=== PATIENT | female | born 1960 | race African-American/Black ===

== ENCOUNTER 2018-04-28 05:15 | Emergency (ER) | payer MEDICARE ==
[~2018-04-28] VITALS: Ht 160 cm; Wt 81.6 kg
[2018-04-28] MEDS ORDERED: LYRICA100 MG PO (05:36)
[2018-04-28] MEDS ORDERED: ALPRAZOLAM1 MG PO (05:36)
[2018-04-28] MEDS ORDERED: COMBIVENT RESPIM4 GM INH (05:36)
[2018-04-28] MEDS ORDERED: NEXIUM40 MG PO (05:36)
[2018-04-28] MEDS ORDERED: ZOLPIDEM TARTRA10 MG PO (05:36)
[2018-04-28] MEDS ORDERED: HYDROCODON-ACE1 EAC9 PO (05:36)
[2018-04-28] MEDS ORDERED: FUROSEMIDE20 MG PO (05:36)
[2018-04-28] MEDS ORDERED: PREMARIN0.3 MG PO (05:36)
[2018-04-28] MEDS ORDERED: PROPRANOLOL HCL60 MG PO (05:36)
[2018-04-28] MEDS ORDERED: MELOXICAM15 MG PO (05:36)
[2018-04-28] MEDS ORDERED: LISINOPRIL-HCT1 EAC1 PO (05:36)
[2018-04-28 05:37] LABS: BASOPHILS % 0.6 % (0.0-1.0); EOSINOPHILS # (AUTO) 0.1 (0.0-0.4); HEMATOCRIT 29.7 % (34.2-44.1); HEMOGLOBIN 9.6 g/dL (12.0-16.0); LYMPHOCYTES # (AUTO) 3.3 (1.0-3.2); LYMPHOCYTES % 49.5 % (18.0-39.1); MEAN CORPUSCULAR HEMOGLOBIN 28.8 pg (28-32); MEAN CORPUSCULAR HGB CONC 32.3 g/dL (31-35); MEAN CORPUSCULAR VOLUME 89.2 fL (81-99); MONOCYTES # (AUTO) 0.5 (0.2-0.8); NEUTROPHILS # (AUTO) 2.6 (2.1-6.9); NEUTROPHILS % 39.6 % (38.7-80.0); PLATELET COUNT 375 x10e3/uL (140-360); RED BLOOD COUNT 3.33 x10e6/uL (3.6-5.1); RED CELL DISTRIBUTION WIDTH 16.5 % (11.7-14.4)
[2018-04-28] MEDS ORDERED: KETOROLAC TROMETHAMINE 30 MG/ML VIAL IV STA (05:54)
[2018-04-28 05:59] LABS: ALANINE AMINOTRANSFERASE 15 IU/L (0-55); ALBUMIN 3.5 g/dL (3.5-5.0); ALKALINE PHOSPHATASE 102 IU/L (40-150); ANION GAP 13.7 mmol/L (8-16); BLOOD UREA NITROGEN 6 mg/dL (7-26); BUN/CREATININE RATIO 8 (6-25); CALCIUM 9.4 mg/dL (8.4-10.2); CARBON DIOXIDE 31 mmol/L (22-29); CHLORIDE 95 mmol/L (98-107); CREATINE KINASE 221 IU/L (29-168); CREATININE, SERUM 0.74 mg/dL (0.57-1.11); EST GLOMERULAR FILTRATION RATE > 60 ML/MIN (60-); GLUCOSE 106 mg/dL (74-118); POTASSIUM 3.7 mmol/L (3.5-5.1); SODIUM 136 mmol/L (136-145)
[2018-04-28 06:30] LABS: BILIRUBIN,URINE NEGATIVE (NEGATIVE); CLARITY,URINE CLEAR (CLEAR); COLOR,URINE YELLOW (YELLOW); KETONES,URINE NEGATIVE (NEGATIVE); LEUKOCYTE ESTERASE ,URINE NEGATIVE (NEGATIVE); NITRITE,URINE NEGATIVE (NEGATIVE); PROTEIN,URINE DIPSTICK NEGATIVE (NEGATIVE); URINE UROBILINOGEN 0.2 mg/dL (0.2 - 1)
[2018-04-28 06:35] LABS: BACTERIA,URINE RARE /HPF; EPITHELIAL CELLS,URINE MODERATE /LPF; RBC,URINE 0-5 /HPF (0-5); WBC,URINE (MAN) 0-5 /HPF (0-5)
[2018-04-28] MEDS ORDERED: NAPROXEN250 MG PO (06:35)
--- NOTE | 2018-04-28 06:49 | Diagnostic Imaging Report ---
EXAM: CHEST SINGLE (NOT PORTABLE), AP 1 view INDICATION: Shortness of breath COMPARISON: None FINDINGS: LINES/TUBES: None LUNGS: No consolidations or edema. PLEURA: No effusions or pneumothorax. HEART AND MEDIASTINUM: Normal size and contour. BONES AND SOFT TISSUES: No acute findings. Mid thoracic spine vertebral plasty changes. Surgical clips left upper quadrant of the abdomen. IMPRESSION: No consolidations. Signed by: Dr. Zoey Navarro M.D. on 04/28/2018 6:46 AM
--- NOTE | 2018-04-28 06:54 | Diagnostic Imaging Report ---
EXAM: lumbar spine, 3 views, AP, lateral and coned lateral view INDICATION: Right lower back pain without trauma COMPARISON: None FINDINGS: BONES: Five lumbar-type vertebral bodies. The alignment is within normal limits. Anterior spinal fusion of L4, L5 and S1 and posterior hardware. The posterior plate is from its screw on the lateral view. No acute displaced fractures. Mild loss of T11 vertebral body height. No lytic or blastic lesions. DISCS: Fused L4-S1 JOINTS: Multilevel facet arthropathy SOFT TISSUES: Multiple surgical clips and sutures left upper abdomen. IMPRESSION: Surgical fusion of L4-S1. The plate is from its screw posteriorly. No priors are available for comparison to determine if this is a chronic or acute finding. Signed by: Dr. Zoey Navarro M.D. on 04/28/2018 6:50 AM
[2018-04-28 07:40] VITALS: BP 147/87
== END 2018-04-28 07:25 | disposition home or self-care (01) ==
LOC: ER 05:15
DX: M54.6 Pain in thoracic spine (principal); S23.3XXA Sprain of ligaments of thoracic spine, initial encounter; R60.9 Edema, unspecified; Z87.891 Personal history of nicotine dependence
CPT/HCPCS: 36415; 71045; 72100; 80053; 81001; 82550; 82553; 83880; 84484; 85025; 93005; 99283; J1885

== ENCOUNTER → 2018-05-19 | Outpatient (CLI) | payer MEDICARE ==
[~2018-05-19] MED LIST: ALPRAZOLAM1 MG PO; COMBIVENT RESPIM4 GM INH; FUROSEMIDE20 MG PO; HYDROCODON-ACE1 EAC9 PO; LISINOPRIL-HCT1 EAC1 PO; LYRICA100 MG PO; MELOXICAM15 MG PO; NAPROXEN250 MG PO; NEXIUM40 MG PO; PREMARIN0.3 MG PO; PROPRANOLOL HCL60 MG PO; ZOLPIDEM TARTRA10 MG PO
--- NOTE | 2018-05-19 09:38 | Diagnostic Imaging Report ---
PROCEDURE:THORACIC SPINE 2VW COMPARISON:Lumbar spine x-ray dated 04/28/2018. INDICATIONS:Back pain 2-3 weeks. fracture with prior surgery FINDINGS:Vertebroplasty cement noted in the T9 vertebral body. Bones are osteopenic. Mild compression abnormality of T11 centrally involving the superior endplate. This appears unchanged compared to prior lumbar spine x-rays. Scattered degenerative spurring of the lower cervical spine and thoracic spine is present. CONCLUSION: 1. Vertebroplasty cement in the T9 vertebral body. 2. Compression abnormality of the superior endplate of T11 appears similar. Johnnie Medina D.O. Dictated by: Johnnie Medina D.O. on 05/19/2018 at 9:44 Electronically approved by: Johnnie Medina D.O. on 05/19/2018 at 9:48
== END ==
LOC: RAD 08:18
PROVIDERS: ATTEND Anesthesiology
DX: S22.079S Unspecified fracture of T9-T10 vertebra, sequela (principal)
CPT/HCPCS: 72070

== ENCOUNTER → 2018-11-03 | Outpatient (CLI) | payer MEDICARE ==
--- NOTE | 2018-11-03 12:17 | Diagnostic Imaging Report ---
Exam: Right ankle 3 views History: Chronic ankle pain Comparison: None. Findings: No acute, displaced fracture or dislocation. Tibial plafond and talar dome are intact. Ankle mortise is maintained. Cortical irregularity with suspected transverse defect in the partially visualized distal fibular diaphysis. Soft tissues are unremarkable. Impression: No acute osseous abnormality. 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 Correlate for history of trauma to this region. Signed by: Dr. Ramez Sims M.D. on 11/03/2018 12:14 PM
== END ==
LOC: RAD 11:33
PROVIDERS: ATTEND Anesthesiology
DX: M25.571 Pain in right ankle and joints of right foot (principal)

== ENCOUNTER 2019-08-31 13:16 | Emergency (ER) | payer MEDICARE ==
[~2019-08-31] VITALS: Ht 160 cm; Wt 81.6 kg
--- OUTSIDE RECORDS SUMMARY | 2019-08-31 13:19 | XMS REPORT ---
Author Author [facility] Address Unknown Phone Unavailable Care Team Providers Care Speeder Frame Tender Name Role Phone WILLARD CLIFFORD Unavailable Unavailable Brady NEWMAN Unavailable Unavailable Mehdi RAO Unavailable Unavailable Payers Payer Name Policy Type Policy Number Effective Date Expiration Date Problems This patient has no known problems. Allergies, Adverse Reactions, Alerts Allergy Name Allergy Type Status Severity Reaction(s) Onset Date Inactive Date Treating Clinician Comments codeine DA Active U 2017-11-08 00:00:00 latex DA Active U 2017-11-08 00:00:00 Medications This patient has no known medications. Results Test Description Test Time Test Comments Text Results Atomic Results Result Comments ANKLE 3 + VIEWS RIGHT 2018-11-03 12:12:00 [place] [address] Patient Name: MARCIAL JEFFREY MR #: [id number] : 1960 Age/Sex: 58/F Req #: [id number] Adm Physician: Ordered by: WILLARD CLIFFORD MD Report #: [id number] Location: [facility] Room/Bed: Procedure: DX/ANKLE 3 + VIEWS RIGHT Exam Date: 11/03/18 Exam Time: 1150 REPORT STATUS: Signed Exam: Right ankle 3 views History: Chronic a nkle pain Comparison: None. Findings: No acute, displaced fracture or dislocation. Tibial plafond and talar dome are intact. Ankle mortise is maintained. Cortical irregularity with suspected transverse defect in the partially visualized distal fibular diaphysis. Soft tissues are unremarkable. Impression: No acute osseous abnormality. 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 Correlate for history of trauma to this region. Signed by: Dr. Taylor Sinclair M.D. on 11/03/2018 12:14 PM Dictated By: TAYLOR SINCLAIR MD 1214 Transcribed By: GARY on 11/03/18 1214 COPY TO: WILLARD CLIFFORD MD THORACIC SPINE 2VW 2018-05-19 09:44:00 [place] [address] Patient Name: JEFF JEFFREY MR #: [id number] : 1960 Age/Sex: 58/F Req #: [id number] Adm Physician: Ordered by: BEBETO NEWMAN MD Report #: [id number] Location: [facility] Room/Bed: Procedure: [id number] DX/THORACIC SPINE 2VW Exam Date: 05/19/18 Exam Time: 0835 REPORT STATUS: Signed PROCEDURE: THORACIC SPINE 2VW COMPARISON: Lumbar s pine x-ray dated 04/28/2018. INDICATIONS: Back pain 2-3 weeks. fracture with prior surgery FINDINGS: Vertebroplasty cement noted in the T9 vertebral body. Bones are osteopenic. Mild compression abnormality of T11 centrally involving the superior endplate. This appears unchanged compared to prior lumbar spine x-rays. Scattered degenerative spurring of the lower cervical spine and thoracic spine is present. CONCLUSION: 1. Vertebroplasty cement in the T9 vertebral body. 2. Compression abnormality of the superior endplate of T11 appears similar. Johnnie Medina D.O. Dictated by: Johnnie Medina D.O. on 05/19/2018 at 9:44 Electronically approved by: Johnnie Medina D.O. on 05/19/2018 at 9:48 Dictated By: JOHNNIE MEDINA DO 7 Transcribed By: BETTYE on 05/19/18947 COPY TO: BEBETO NEWMAN MD LUMBAR 3 VIEW 2018-04-28 06:48:00 [place] [address] Patient Name: JEFF JEFFREY MR #: [id number] : 1960 Age/Sex: 58/F Req #: [id number] [facility] Physician: Ordered by: DAVID RAO MD Report #: [id number] Location: ER Room/Bed: Procedure: [id number] DX/LUMBAR 3 VIEW Exam Date: 04/28/18 Exam Time: 0605 REPORT STATUS: Signed EXAM: lumbar spine, 3 views, AP, lateral and coned lateral view INDICATION: Right lower back pain without trauma COMPARISON: None FINDINGS: BONES: Five lumbar-type vertebral bodies. The alignment is within normal limits. Anterior spinal fusion of L4, L5 and S1 and posterior hardware. The posterior plate is from its screw on the lateral view. No acute displaced fractures. Mild loss of T11 vertebral body height. No lytic or blastic lesions. DISCS: Fused L4-S1 JOINTS: Multilevel facet arthropathy SOFT TISSUES: Multiple surgical clips and sutures left upper abdomen. IMPRESSION: Surgical fusion of L4-S1. The plate is from its screw posteriorly. No priors are available for comparison to determine if this is a chronic or acute finding. Signed by: Dr. Karen Navarro M.D. on 04/28/2018 6:50 AM Dictated By: KAREN NAVARRO MD 9 Transcribed By: GARY on 04/28/1850 COPY TO: DAVID RAO MD CHEST SINGLE (NOT PORTABLE) 2018-04-28 06:45:00 [place] [address] Patient Name: JEFF JEFFREY MR #: [id number] : 1960 Age/Sex: 58/F Req #: [id number] Adm Physician: Ordered by: DAVID RAO MD Report #: [id number] Location: ER Room/Bed: Procedure: [id number] DX/CHEST SINGLE (NOT PORTABLE) Exam Date: 04/28/18 Exam Time: 604 REPORT STATUS: Signed EXAM: CHEST SINGLE (NOT PORTABLE), AP 1 view INDICATION: Shortness of breath COMPARISON: None FINDINGS: LINES/TUBES: None LUNGS: No consolidations or edema. PLEURA: No effusions or pneumothorax. HEART AND MEDIASTINUM: Normal size and contour. BONES AND SOFT TISSUES: No acute findings. Mid thoracic spine vertebral plasty changes. Surgical clips left upper quadrant of the abdomen. IMPRESSION: No consolidations. Signed by: Dr. Karen Navarro M.D. on 04/28/2018 6:46 AM Dictated By: KAREN NAVARRO MD 5 Transcribed By: GARY on 04/28/18645 COPY TO: DAVID RAO MD
[2019-08-31] MEDS ORDERED: KETOROLAC TROMETHAMINE 60 MG/2 ML VIAL IM ONE (14:00)
== END 2019-08-31 14:27 | disposition home or self-care (01) ==
LOC: ER 13:16
DX: M54.5 Low back pain (principal); G89.29 Other chronic pain; I10 Essential (primary) hypertension; E03.9 Hypothyroidism, unspecified; Z98.84 Bariatric surgery status
CPT/HCPCS: 99283; J1885